=== PATIENT | male | born 1990 | race Caucasian/White ===

== ENCOUNTER 2016-11-20 13:39 | Emergency (ER) | payer OTHER ==
[~2016-11-20] VITALS: Wt 71.0 kg
[2016-11-20] MEDS ORDERED: HYDR-906 PO (15:16)
--- NOTE | 2016-11-20 15:20 | ERD ---
ER Documentation Chief Complaint Date/Time DATE: 11/20/16 TIME: 15:18 Chief Complaint POSSIBLE INFECTION DUE TO PENIS PIERCING HPI Patient is a 26-year-old male who presents with a penile piercing that he has had for 3 years which he would like us to remove now. It has become painful over the past few days. Denies any dysuria hematuria or urinary frequency. No fever. No bleeding or drainage. ROS All systems reviewed and are negative except as per history of present illness. Medications Home Meds Active Scripts Hydrocodone/Acetaminophen (Redby 5-325 Tablet) 1 Each Tablet, 1 TAB PO Q6H Y for PAIN, #20 TAB Prov:FRANNY PEOPLES PA-C 11/20/16 Allergies Allergies: Coded Allergies: No Known Allergy (Unverified , 11/10/14) PMhx/Soc History of Surgery: No Anesthesia Reaction: No Hx Neurological Disorder: No Hx Respiratory Disorders: No Hx Cardiac Disorders: No Hx Psychiatric Problems: No Hx Miscellaneous Medical Probl: No Hx Alcohol Use: No Hx Substance Use: No Hx Tobacco Use: Yes FmHx Family History: No diabetes Physical Exam Vitals Vital Signs Date Time Temp Pulse Resp B/P Pulse Ox O2 Delivery O2 Flow Rate FiO2 11/20/16 13:43 98.1 75 18 130/67 99 Physical Exam General: well developed, well nourished, alert, nontoxic, no distress Head: normocephalic, atraumatic Neck: Supple, nontender, no lymphadenopathy, no midline tenderness Respiratory: Clear to auscaultation bilaterally, speaks in full sentences, no use of accesory muscles or labored breathing, no rales, ronchi, or wheezing Cardiovascular: RRR, No murmurs GI: soft, non tender, non distended, negative murphys sign, negative mcburneys point tenderness, no cva tenderness bilaterally, no rebound or guarding : Along the side of the shaft of the penis there is evidence of soft tissue foreign body that appears to be a round metallic ball approximately half a centimeter in diameter Procedures/MDM Patient presents with penile foreign body that has been there for 3 years. He wants it removed as it is recently becoming tender and he has been taking Motrin which does not help. Physical exam is not concerning for any evidence of infection. Explained to the patient that he should follow-up with general surgery or urology for further management of this however I spoke to Dr. Dean my supervising physician and we do not believe it is appropriate to attempt to remove it here in the emergency room. Given a prescription for Redby for pain as he has been taking Motrin without relief. Recommended this patient follow up with her primary care doctor within 48 hours or return to the emergency room for any worsening of symptoms. However this time I do believe there is suitable for outpatient management. I answered all their questions and they agreed with the plan and were discharged home. Departure Diagnosis: Primary Impression: Penile FB Condition: Stable Patient Instructions: Foreign Body, Soft Tissue [Not Removed] Referrals: LENO OLIVERA MD,CARMEN BARKER MD, JERRY S MD HARDY,RYAN FRANCO,DEYA MALCOLM MD MD= [facility] YOU HAVE RECEIVED A MEDICAL SCREENING EXAM AND THE RESULTS INDICATE THAT YOU DO NOT HAVE A CONDITION THAT REQUIRES URGENT TREATMENT IN THE EMERGENCY DEPARTMENT. FURTHER EVALUATION AND TREATMENT OF YOUR CONDITION CAN WAIT UNTIL YOU ARE SEEN IN YOUR DOCTORS OFFICE WITHIN THE NEXT 1-2 DAYS. IT IS YOUR RESPONSIBILITY TO MAKE AN APPOINTMENT FOR FOLOW-UP CARE. IF YOU HAVE A PRIMARY DOCTOR --you should call your primary doctor and schedule and appointment IF YOU DO NOT HAVE A PRIMARY DOCTOR YOU CAN CALL OUR PHYSICIAN REFERRAL HOTLINE AT . IF YOU CAN NOT AFFORD TO SEE A PHYSICIAN YOU CAN CHOSE FROM THE FOLLOWING [facility] INSTITUTIONS: [facility] [address] [place] [address] [facility] [address] [place], [place] [id number] [place] [address] [address] [place] [address] Additional Instructions: Call your primary care doctor TOMORROW for an appointment during the next 1-2 days.See the doctor sooner or return here if your condition worsens before your appointment time. FRANNY PEOPLES PA-C November 20, 2016 15:20
== END 2016-11-20 15:37 | disposition home or self-care (01) ==
LOC: FTE 13:39
DX: T19.4XXA Foreign body in penis, initial encounter (principal); X58.XXXA Exposure to other specified factors, initial encounter; Y92.9 Unspecified place or not applicable; Z87.891 Personal history of nicotine dependence
CPT/HCPCS: 99283